=== PATIENT | female | born 1945 | race Two or more races ===

== ENCOUNTER 2017-03-05 03:25 | Emergency (ER) | payer OTHER, MEDICAID ==
[~2017-03-05] VITALS: Ht 165.1 cm; Wt 99.8 kg
[~2017-03-05 03:25] MED LIST: ASPI325T25; DOC100C PO; FLUO20CA19 PO; GABA300C PO; HUMULOG; LANTUS SUBCUT; LEV500T PO; LEVO25TA6 PO; METF100097 PO; METR500T PO; PANTOPRAZOLE 40MG TABLETS PO; SENN8.6T21 PO; SIMV-13 PO; VALS160T53
[2017-03-05] MEDS ORDERED: ASPirin 81 mg TAB PO ONE (04:30)
[2017-03-05] MEDS ORDERED: MORPHINE SULFATE 4 MG/ML SYRG IV ONE (04:30)
[2017-03-05] MEDS ORDERED: NITROGLYCERIN 0.2MG/HR TOPICAL PATCH TD ONE (04:30)
[2017-03-05] MEDS ORDERED: ONDANSETRON HCL 4 MG/2 ML VIAL IV ONE (04:30)
[2017-03-05 04:38] LABS: Basophils # (auto) 0.1 uL; Basophils % (auto) 0.6 % (0.0-2.0); CONDITION Y; Eosinophils # (auto) 0.4 uL; Eosinophils % (auto) 4.1 % (0.0-7.0); Hematocrit 35.1 % (36.0-46.0); Hemoglobin 11.7 g/dL (12.2-16.2); Lymphocytes # (auto) 2.3 uL; Lymphocytes % (auto) 24.1 % (10.0-50.0); Mean Corpuscular Hemoglobin 27.4 pg (28.0-32.0); Mean Corpuscular Hgb Conc. 33.4 g/dL (32.0-36.0); Mean Corpuscular Volume 82.1 fL (80.0-100.0); Mean Platelet Volume 9.6 fL (7.4-10.4); Monocytes # (auto) 0.8 uL; Monocytes % (auto) 8.4 % (0.0-12.0); Neutrophils # (auto) 6.1 uL; Neutrophils % (auto) 62.8 % (37.0-80.0); Platelet Count (auto) 338 10^3/uL (140-450); Red Cell Distribution Width 13.9 % (11.6-16.0); White Blood Cell 9.7 10^3/uL (4.4-10.8)
[2017-03-05 04:56] LABS: Albumin 3.6 g/dL (3.4-5.0); Anion Gap 8 (5-15); Aspartate Aminotransferase 18 U/L (15-37); BUN/Creatinine Ratio 16.4; Blood Urea Nitrogen 23 mg/dL (7-18); Calcium 8.6 mg/dL (8.5-10.1); Carbon Dioxide 25 mmol/L (21-32); Chloride 90 mmol/L (98-107); GFR African American 48 mL/min; GFR Non-African American 39 mL/min; Glucose 213 mg/dL (74-106); Potassium 5.3 mmol/L (3.5-5.1); Sodium 123 mmol/L (136-145)
[2017-03-05 05:04] LABS: INR 0.95 (0.9-1.15); Partial Thromboplastin Time 29.3 sec (22.64-33.71); Prothrombin Time 10.4 sec (9.37-12.3)
[2017-03-05 05:10] LABS: Alkaline Phosphatase 94 U/L (45-117); Bilirubin, Total 0.3 mg/dL (0.2-1.0); Total Protein 7.6 g/dL (6.4-8.2)
[2017-03-05 05:33] LABS: B-Type Natriuretic Peptide 906.76 pg/mL (0-100)
[2017-03-05 06:03] LABS: Temperature: 22.7 C (20.0-25.0)
[2017-03-05 06:54] LABS: Urine Bilirubin Negative (Negative); Urine Blood Negative /uL (Negative); Urine Color Yellow (Yellow); Urine Glucose Normal (Normal); Urine Ketone Negative (Negative); Urine Nitrite Negative (Negative); Urine RBC <1 /hpf (0 - 4); Urine Squamous Epithelial Cell FEW /hpf (<5); Urine Urobilinogen Normal (Negative); Urine pH 6.5 (5.0-8.0)
[2017-03-05] MEDS ORDERED: SODIUM CHLORIDE 0.9% 2,000 ML IV ONE (10:15)
[2017-03-05 12:50] VITALS: BP 173/70
== END 2017-03-05 13:56 | disposition home or self-care (01) ==
LOC: EDBD 03:25 → ER 03:28
DX: I20.9 Angina pectoris, unspecified (principal); I10 Essential (primary) hypertension; E11.9 Type 2 diabetes mellitus without complications; M19.90 Unspecified osteoarthritis, unspecified site; Z90.710 Acquired absence of both cervix and uterus; E78.5 Hyperlipidemia, unspecified; Z87.891 Personal history of nicotine dependence; Z79.4 Long term (current) use of insulin; Z79.82 Long term (current) use of aspirin; Z79.899 Other long term (current) drug therapy
CPT/HCPCS: 36415; 71010; 74176; 80053; 81001; 83735; 83880; 84443; 84484; 85025; 85610; 85730; 93005; 94761; 96361; 96374; 99285; J2405; J7030

== ENCOUNTER 2019-02-14 09:10 | Emergency (ER) | payer OTHER, MEDICAID ==
[~2019-02-14] VITALS: Ht 165.1 cm; Wt 90.7 kg
[2019-02-14 11:11] VITALS: BP 122/57
[2019-02-14] MEDS ORDERED: HYDROcodone-ACET 7.5/325MG TAB PO ONE (12:00)
== END 2019-02-14 12:16 | disposition home or self-care (01) ==
LOC: ER 09:17
DX: M50.122 Cervical disc disorder at C5-C6 level with radiculopathy (principal); E11.9 Type 2 diabetes mellitus without complications; E78.5 Hyperlipidemia, unspecified; I10 Essential (primary) hypertension; Z87.891 Personal history of nicotine dependence; Z90.710 Acquired absence of both cervix and uterus; Z86.39 Personal history of other endocrine, nutritional and metabolic disease
CPT/HCPCS: 72040

== ENCOUNTER 2019-02-19 09:41 | Emergency (ER) | payer OTHER, MEDICAID ==
[~2019-02-19] VITALS: Ht 165.1 cm; Wt 93.0 kg
[2019-02-19 10:10] VITALS: BP 168/73
== END 2019-02-19 10:39 | disposition home or self-care (01) ==
LOC: ER 09:41
DX: R21 Rash and other nonspecific skin eruption (principal); I10 Essential (primary) hypertension; E11.9 Type 2 diabetes mellitus without complications; E78.00 Pure hypercholesterolemia, unspecified; Z87.891 Personal history of nicotine dependence; Z90.49 Acquired absence of other specified parts of digestive tract; Z90.710 Acquired absence of both cervix and uterus; Z79.4 Long term (current) use of insulin; Z79.2 Long term (current) use of antibiotics; Z79.899 Other long term (current) drug therapy; Z79.82 Long term (current) use of aspirin
CPT/HCPCS: 82962

== ENCOUNTER 2020-05-06 17:15 | Emergency (ER) | payer OTHER, MEDICAID ==
[~2020-05-06] VITALS: Ht 162.6 cm; Wt 94.3 kg
[2020-05-06 19:32] LABS: Urine Bacteria FEW /hpf (None Seen); Urine Blood Negative /uL (Negative); Urine Specific Gravity 1.018 (1.001-1.035); Urine WBC 355 /hpf (0 - 5)
[2020-05-06 19:54] VITALS: BP 150/64
[2020-05-06] MEDS ORDERED: cefTRIAXone SOD 1,000 MG VL ONE (20:00)
[2020-05-06] MEDS ORDERED: cefTRIAXone W LIDOCAINE 1 GM IM IM ONE (20:00)
[2020-05-06] MEDS ORDERED: PHENAZOPYRIDINE HCL 100 MG TAB PO ONE ×2 (20:00→20:15)
== END 2020-05-06 20:17 | disposition home or self-care (01) ==
LOC: ER 17:15
DX: N39.0 Urinary tract infection, site not specified (principal); E11.9 Type 2 diabetes mellitus without complications; E78.5 Hyperlipidemia, unspecified; I10 Essential (primary) hypertension; Z90.49 Acquired absence of other specified parts of digestive tract; Z79.899 Other long term (current) drug therapy; Z79.82 Long term (current) use of aspirin
CPT/HCPCS: 81001; 87086; 96372; 99283; J0696; 87088; 87186

== ENCOUNTER 2020-05-07 08:33 | Emergency (ER) | payer OTHER, MEDICAID ==
[~2020-05-07] VITALS: Ht 165.1 cm; Wt 94.3 kg
[2020-05-07 09:14] LABS: Urine Bacteria FEW /hpf (None Seen); Urine Blood TRACE /uL (Negative); Urine Specific Gravity 1.013 (1.001-1.035); Urine WBC 328 /hpf (0 - 5); Urine WBC Clumps PRESENT /hpf (None Seen)
[2020-05-07 09:23] LABS: Basophils # (auto) 0.1 10 ^3/uL (0-0.2); Eosinophils # (auto) 0 10 ^3/uL (0-0.8); Eosinophils % (auto) 0.3 % (0.0-7.0); Neutrophils % (auto) 79.6 % (37.0-80.0)
[2020-05-07 09:25] LABS: Basophils % (auto) 0.6 % (0.0-2.0); Hematocrit 34.7 % (36.0-46.0); Hemoglobin 11.2 g/dL (12.2-16.2); Lymphocytes # (auto) 0.9 10 ^3/uL (0.4-5.4); Lymphocytes % (auto) 7.4 % (10.0-50.0); Mean Corpuscular Hemoglobin 27.2 pg (28.0-32.0); Mean Corpuscular Hgb Conc. 32.1 g/dL (32.0-36.0); Mean Corpuscular Volume 84.7 fL (80.0-100.0); Monocytes # (auto) 1.5 10 ^3/uL (0-1.3); Monocytes % (auto) 12.1 % (0.0-12.0); Neutrophils # (auto) 9.7 10 ^3/uL (1.6-8.6); Platelet Count (auto) 320 10^3/uL (140-450); White Blood Cell 12.2 10^3/uL (4.4-10.8)
[2020-05-07 09:38] LABS: Albumin 3.1 g/dL (3.4-5.0); Amylase 29 U/L (25-115); Anion Gap 8 (5-15); Blood Urea Nitrogen 17 mg/dL (7-18); Calcium 8.7 mg/dL (8.5-10.1); Carbon Dioxide 25 mmol/L (21-32); Chloride 94 mmol/L (98-107); Glucose 317 mg/dL (74-106); Lipase 119 U/L (73-393); Potassium 4.4 mmol/L (3.5-5.1); Sodium 127 mmol/L (136-145)
[2020-05-07 09:44] LABS: Alanine Aminotransferase 17 U/L (13-56); Alkaline Phosphatase 85 U/L (45-117); Aspartate Aminotransferase 14 U/L (15-37); BUN/Creatinine Ratio 13.1; Bilirubin, Total 0.4 mg/dL (0.2-1.0); GFR African American 51 mL/min; GFR Non-African American 42 mL/min; Total Protein 7.4 g/dL (6.4-8.2)
[2020-05-07] MEDS ORDERED: cefTRIAXone 1GM/50ML D5W 50 ML IV ONE (10:15)
[2020-05-07] MEDS ORDERED: SODIUM CHLORIDE 0.9% 1,000 ML IV ONE (11:00)
[2020-05-07] MEDS ORDERED: metroNIDAZOLE 500MG/100ML 100 ML IV ONE (11:30)
[2020-05-07 14:00] VITALS: BP 163/67
== END 2020-05-07 14:17 | disposition home or self-care (01) ==
LOC: ER 08:33 → EDBD 08:33 → ER 14:17
DX: N39.0 Urinary tract infection, site not specified (principal); E11.21 Type 2 diabetes mellitus with diabetic nephropathy; K52.89 Other specified noninfective gastroenteritis and colitis; E87.1 Hypo-osmolality and hyponatremia; E78.5 Hyperlipidemia, unspecified; E03.9 Hypothyroidism, unspecified; Z90.49 Acquired absence of other specified parts of digestive tract; Z87.891 Personal history of nicotine dependence; Z79.899 Other long term (current) drug therapy; Z79.82 Long term (current) use of aspirin; Z90.710 Acquired absence of both cervix and uterus
CPT/HCPCS: 36415; 80053; 81001; 82150; 82962; 83690; 84443; 84484; 85025; 87086; 87493; 93005; 96365; 96367; 99284; J0696; J3490; J7030

== ENCOUNTER 2021-07-03 17:11 | Emergency (ER) | payer OTHER, MEDICAID ==
[~2021-07-03] VITALS: Ht 165.1 cm; Wt 90.7 kg
[2021-07-03 17:24] VITALS: BP 101/54
== END 2021-07-03 17:40 | disposition home or self-care (01) ==
LOC: ER 17:11 → EDBD 17:11 → ER 17:40
DX: M25.562 Pain in left knee (principal); N39.0 Urinary tract infection, site not specified; I10 Essential (primary) hypertension; E11.9 Type 2 diabetes mellitus without complications; E78.5 Hyperlipidemia, unspecified; E03.9 Hypothyroidism, unspecified; Z90.49 Acquired absence of other specified parts of digestive tract; Z90.710 Acquired absence of both cervix and uterus; Z95.0 Presence of cardiac pacemaker; Z87.891 Personal history of nicotine dependence; Z79.82 Long term (current) use of aspirin; Z79.2 Long term (current) use of antibiotics; Z79.899 Other long term (current) drug therapy; W19.XXXA Unspecified fall, initial encounter; Y93.89 Activity, other specified; Y92.89 Other specified places as the place of occurrence of the external cause; Y99.8 Other external cause status

== ENCOUNTER 2023-02-06 13:34 | Inpatient (IN) | payer OTHER, MEDICAID ==
[~2023-02-06] VITALS: Ht 167.6 cm; Wt 100.8 kg
[~2023-02-06 13:34] MED LIST changes: -SIMV-13 PO; +SIMV40TA18 PO
[2023-02-06 14:18] LABS: Basophils # (auto) 0.1 10 ^3/uL (0-0.2); Basophils % (auto) 0.6 % (0.0-2.0); Eosinophils # (auto) 0.1 10 ^3/uL (0-0.8); Hemoglobin 11.9 g/dL (12.2-16.2); Lymphocytes # (auto) 0.8 10 ^3/uL (0.4-5.4); Mean Corpuscular Hemoglobin 25.8 pg (28.0-32.0); Monocytes # (auto) 1.6 10 ^3/uL (0-1.3)
[2023-02-06 14:20] LABS: Eosinophils % (auto) 0.8 % (0.0-7.0); Hematocrit 36.9 % (36.0-46.0); Lymphocytes % (auto) 7.6 % (10.0-50.0); Mean Corpuscular Hgb Conc. 32.2 g/dL (32.0-36.0); Mean Corpuscular Volume 80.1 fL (80.0-100.0); Monocytes % (auto) 14.3 % (0.0-12.0); Neutrophils # (auto) 8.4 10 ^3/uL (1.6-8.6); Neutrophils % (auto) 76.7 % (37.0-80.0); Nucleated Red Blood Cells % 0.1 %; Red Blood Cells 4.61 10^6/uL (4.0-5.20); Red Cell Distribution Width 14.3 % (11.8-14.3); White Blood Cell 10.9 10^3/uL (4.4-10.8)
[2023-02-06 14:40] LABS: Albumin 3.4 g/dL (3.4-5.0); Magnesium 1.7 mg/dL (1.6-2.6); Potassium 4.4 mmol/L (3.5-5.1)
[2023-02-06 14:43] LABS: BUN/Creatinine Ratio 14.9 (10.0-20.0); Bilirubin, Total 0.4 mg/dL (0.2-1.0); Total Protein 8.1 g/dL (6.4-8.2)
[2023-02-06] MEDS ORDERED: FUROSEMIDE 40 MG/4 ML VIAL IV ONE (16:30)
[2023-02-06 16:48] LABS: Urine Bacteria FEW /hpf (None Seen); Urine Blood Negative /uL (Negative); Urine WBC <1 /hpf (0 - 5)
[2023-02-06] MEDS ORDERED: ACETAMINOPHEN 325 MG TAB PO PRN (18:30)
[2023-02-06] MEDS ORDERED: MORPHINE SULFATE INJ 2 MG/ml SYRG IV PRN ×2 (18:30)
[2023-02-06] MEDS ORDERED: VALSARTAN 80 MG TAB PO ONE ×2 (18:30→19:00)
[2023-02-06] MEDS ORDERED: DEXTROSE (50%) 50ML SYRG IV PRN (18:30)
[2023-02-06] MEDS ORDERED: cefTRIAXone 1GM/50ML D5W 50 ML IV ONE (18:30)
[2023-02-06] MEDS ORDERED: NITROGLYCERIN 0.4 MG SL TAB SL PRN (18:30)
[2023-02-06 18:57] LABS: Cholesterol 154 mg/dL (< 200); Triglycerides 101 mg/dL (< 150)
[2023-02-06] MEDS: SODIUM CHLORIDE 0.9% 1,000 ML IV SCH (18:57)
[2023-02-06] MEDS: ENOXAPARIN SOD 40 MG/0.4 ML SYRINGE SC SCH (18:58)
[2023-02-06 19:00] LABS: HDL Cholesterol 46 mg/dL (40-59); LDL Cholesterol 101 mg/dL (< 100)
[2023-02-06] MEDS ORDERED: AZITHROMYCIN 500MG/ 250ML 250 ML IV ONE (19:00)
[2023-02-06] MEDS: hydrALAZINE HCL 20 MG/ML VL IV PRN (19:10)
[2023-02-06] MEDS: HCTZ 25 MG TAB PO SCH (20:07)
[2023-02-06] MEDS: METOPROLOL TARTRATE 25 MG TAB PO SCH (22:07)
[2023-02-06] MEDS: ATORVASTATIN 20 MG TAB PO SCH (22:07)
[2023-02-06] MEDS: DOCUSATE SOD 100 MG CAP PO SCH (22:07)
[2023-02-06] MEDS: GABAPENTIN 300 MG CAP PO SCH (22:07)
[2023-02-06] MEDS: ACCU-CHEK COMFORT CURVE STRIP VI SCH (22:14)
[2023-02-06] MEDS: InsuLIN REG 1unit/0.01ml Soln (100units/ml) SC SCH (22:18)
[2023-02-06] MEDS: INSULIN LANTUS (GLARGINE) 1 /0.01ml (100units/ml) SC SCH (22:19)
[2023-02-06] MEDS: HYDROcodone-ACET 5/325MG TAB PO PRN (23:55)
[2023-02-07 05:49] LABS: Basophils # (auto) 0.1 10 ^3/uL (0-0.2); Eosinophils # (auto) 0 10 ^3/uL (0-0.8); Hemoglobin 11.6 g/dL (12.2-16.2); Mean Corpuscular Volume 80.3 fL (80.0-100.0); Red Cell Distribution Width 14.3 % (11.8-14.3)
[2023-02-07 05:53] LABS: Basophils % (auto) 0.8 % (0.0-2.0); Eosinophils % (auto) 0.3 % (0.0-7.0); Hematocrit 35.5 % (36.0-46.0); Lymphocytes # (auto) 0.8 10 ^3/uL (0.4-5.4); Lymphocytes % (auto) 9.5 % (10.0-50.0); Mean Corpuscular Hemoglobin 26.4 pg (28.0-32.0); Mean Corpuscular Hgb Conc. 32.8 g/dL (32.0-36.0); Monocytes # (auto) 1.5 10 ^3/uL (0-1.3); Monocytes % (auto) 17.6 % (0.0-12.0); Neutrophils # (auto) 6.3 10 ^3/uL (1.6-8.6); Neutrophils % (auto) 71.8 % (37.0-80.0); Nucleated Red Blood Cells % 0.2 %; Red Blood Cells 4.42 10^6/uL (4.0-5.20); White Blood Cell 8.8 10^3/uL (4.4-10.8)
[2023-02-07 06:15] LABS: Potassium 3.6 mmol/L (3.5-5.1)
[2023-02-07] MEDS: GABAPENTIN 300 MG CAP PO SCH ×3 (06:20→21:51)
[2023-02-07 06:22] LABS: Albumin 3.3 g/dL (3.4-5.0); BUN/Creatinine Ratio 18.2 (10.0-20.0); Bilirubin, Total 0.3 mg/dL (0.2-1.0); Calcium 8.6 mg/dL (8.5-10.1); Total Protein 7.8 g/dL (6.4-8.2)
[2023-02-07] MEDS: LEVOTHYROXINE SODIUM 25 MCG TAB PO SCH (06:33)
[2023-02-07] MEDS: ACCU-CHEK COMFORT CURVE STRIP VI SCH ×4 (06:37→21:52)
[2023-02-07] MEDS: INSULIN LANTUS (GLARGINE) 1 /0.01ml (100units/ml) SC SCH ×2 (06:43→22:00)
[2023-02-07] MEDS: InsuLIN REG 1unit/0.01ml Soln (100units/ml) SC SCH ×4 (06:45→21:48)
[2023-02-07] MEDS: cefTRIAXone 1GM/50ML D5W 50 ML IV SCH (08:56)
[2023-02-07] MEDS ORDERED: ASPirin 81 mg TAB PO SCH (10:00)
[2023-02-07] MEDS: VALSARTAN 80 MG TAB PO SCH (10:51)
[2023-02-07] MEDS: DOCUSATE SOD 100 MG CAP PO SCH ×2 (10:52→21:51)
[2023-02-07] MEDS: METOPROLOL TARTRATE 25 MG TAB PO SCH ×2 (10:52→21:52)
[2023-02-07] MEDS: FLUoxetine HCL 20 MG CAP PO SCH (10:52)
[2023-02-07] MEDS: ENOXAPARIN SOD 40 MG/0.4 ML SYRINGE SC SCH (10:52)
[2023-02-07] MEDS: HCTZ 25 MG TAB PO SCH (10:52)
[2023-02-07] MEDS: AZITHROMYCIN 500MG/ 250ML 250 ML IV SCH (10:53)
[2023-02-07] MEDS: SODIUM CHLORIDE 0.9% 1,000 ML IV SCH (11:12)
[2023-02-07] MEDS: hydrALAZINE HCL 20 MG/ML VL IV PRN (12:11)
[2023-02-07] MEDS ORDERED: AZITHROMYCIN 500MG/ 250ML 250 ML IV SCH (13:30)
[2023-02-07] MEDS: HYDROcodone-ACET 5/325MG TAB PO PRN (14:19)
[2023-02-07 16:03] VITALS: BP 145/60
[2023-02-07] MEDS ORDERED: VALS160T53 PO (19:19)
[2023-02-07] MEDS ORDERED: APIX5TAB PO (19:19)
[2023-02-07] MEDS ORDERED: DOXY-346 PO (19:19)
[2023-02-07] MEDS: APIXABAN 5 MG TAB PO SCH (21:52)
[2023-02-07] MEDS: ATORVASTATIN 20 MG TAB PO SCH (21:52)
[2023-02-07 22:00] VITALS: BP 161/56
[2023-02-08 05:00] VITALS: BP 166/60
[2023-02-08] MEDS: hydrALAZINE HCL 20 MG/ML VL IV PRN (05:33)
[2023-02-08] MEDS: LEVOTHYROXINE SODIUM 25 MCG TAB PO SCH (06:01)
[2023-02-08] MEDS: GABAPENTIN 300 MG CAP PO SCH ×2 (06:01→14:00)
[2023-02-08] MEDS: InsuLIN REG 1unit/0.01ml Soln (100units/ml) SC SCH ×2 (06:05→12:51)
[2023-02-08] MEDS: ACCU-CHEK COMFORT CURVE STRIP VI SCH ×2 (06:07→12:48)
[2023-02-08] MEDS: INSULIN LANTUS (GLARGINE) 1 /0.01ml (100units/ml) SC SCH (06:07)
[2023-02-08 09:00] VITALS: BP 115/39
[2023-02-08] MEDS: cefTRIAXone 1GM/50ML D5W 50 ML IV SCH (09:24)
[2023-02-08] MEDS: AZITHROMYCIN 500MG/ 250ML 250 ML IV SCH (09:29)
[2023-02-08] MEDS: DOCUSATE SOD 100 MG CAP PO SCH (09:31)
[2023-02-08] MEDS: FLUoxetine HCL 20 MG CAP PO SCH (09:31)
[2023-02-08] MEDS: APIXABAN 5 MG TAB PO SCH (09:31)
[2023-02-08] MEDS: VALSARTAN 80 MG TAB PO SCH (09:32)
[2023-02-08] MEDS: HCTZ 25 MG TAB PO SCH (09:33)
[2023-02-08] MEDS: METOPROLOL TARTRATE 25 MG TAB PO SCH (09:33)
[2023-02-08] MEDS ORDERED: PANTOPRAZOLE 40 MG TAB PO SCH (10:00)
[2023-02-08 13:00] VITALS: BP 154/57
== END 2023-02-08 18:30 | disposition home health service (06) | DRG 189 ==
LOC: EDBD 13:34 → ER 13:34 → TELE 18:29 → TELE-WESTW 02-07 16:05
PROVIDERS: ADMIT Registered Nurse; ATTEND Internal Medicine
DX: J96.01 Acute respiratory failure with hypoxia (principal); I50.33 Acute on chronic diastolic (congestive) heart failure; J18.9 Pneumonia, unspecified organism; N17.9 Acute kidney failure, unspecified; I13.0 Hypertensive heart and chronic kidney disease with heart failure and stage 1 through stage 4 chronic kidney disease, or unspecified chronic kidney disease; F03.92 Unspecified dementia, unspecified severity, with psychotic disturbance; I82.401 Acute embolism and thrombosis of unspecified deep veins of right lower extremity; Z68.41 Body mass index [BMI] 40.0-44.9, adult; I16.1 Hypertensive emergency; K76.0 Fatty (change of) liver, not elsewhere classified; N18.32 Chronic kidney disease, stage 3b; E11.22 Type 2 diabetes mellitus with diabetic chronic kidney disease; I48.91 Unspecified atrial fibrillation; E78.5 Hyperlipidemia, unspecified; E03.9 Hypothyroidism, unspecified; E66.9 Obesity, unspecified; Z90.710 Acquired absence of both cervix and uterus; Z95.0 Presence of cardiac pacemaker; Z87.891 Personal history of nicotine dependence; Z86.73 Personal history of transient ischemic attack (TIA), and cerebral infarction without residual deficits
CPT/HCPCS: 36415; 36600; 70450; 71045; 74176; 78582; 80053; 80061; 80320; 81001; 82805; 82962; 83036; 83690; 83735; 84443; 85025; 85379; 87040; 93005; 93306; 93970; 96361; 96365; 96375; 99291; G0378; J0696; J1815

== ENCOUNTER 2023-02-10 13:45 | Inpatient (IN) | payer OTHER, MEDICAID ==
[~2023-02-10] VITALS: Ht 172.7 cm; Wt 95.7 kg
[~2023-02-10 13:45] MED LIST changes: +APIX5TAB PO; -ASPI325T25; +DOXY-346 PO; -LEV500T PO; -METR500T PO; -VALS160T53; +VALS160T53 PO
[2023-02-10] MEDS ORDERED: metroNIDAZOLE 500 MG TAB PO ONE (15:00)
[2023-02-10] MEDS ORDERED: SODIUM CHLORIDE 0.9% 1,000 ML IVB ONE (15:00)
[2023-02-10 15:28] LABS: Basophils # (auto) 0.1 10 ^3/uL (0-0.2); Basophils % (auto) 0.7 % (0.0-2.0); Eosinophils # (auto) 0.1 10 ^3/uL (0-0.8); Lymphocytes # (auto) 1.3 10 ^3/uL (0.4-5.4); Monocytes # (auto) 0.9 10 ^3/uL (0-1.3)
[2023-02-10 15:30] LABS: Eosinophils % (auto) 0.6 % (0.0-7.0); Hematocrit 36.8 % (36.0-46.0); Hemoglobin 11.9 g/dL (12.2-16.2); Lymphocytes % (auto) 14.7 % (10.0-50.0); Mean Corpuscular Hemoglobin 25.9 pg (28.0-32.0); Mean Corpuscular Hgb Conc. 32.3 g/dL (32.0-36.0); Mean Corpuscular Volume 80.1 fL (80.0-100.0); Monocytes % (auto) 10.5 % (0.0-12.0); Neutrophils # (auto) 6.3 10 ^3/uL (1.6-8.6); Neutrophils % (auto) 73.5 % (37.0-80.0); Nucleated Red Blood Cells % 0.1 %; Red Blood Cells 4.59 10^6/uL (4.0-5.20); Red Cell Distribution Width 14.2 % (11.8-14.3); White Blood Cell 8.6 10^3/uL (4.4-10.8)
[2023-02-10 15:45] LABS: INR 0.99 (0.9-1.15); Partial Thromboplastin Time 32.5 sec (24.6-33.4)
[2023-02-10] MEDS ORDERED: LORazepam 2MG/ML-1ML VIAL IM ONE (15:45)
[2023-02-10 15:47] LABS: Albumin 3.2 g/dL (3.4-5.0); Calcium 8.5 mg/dL (8.5-10.1); Magnesium 1.9 mg/dL (1.6-2.6); Potassium 3.4 mmol/L (3.5-5.1)
[2023-02-10 15:50] LABS: BUN/Creatinine Ratio 16.6 (10.0-20.0); Bilirubin, Total 0.3 mg/dL (0.2-1.0); Total Protein 7.1 g/dL (6.4-8.2)
[2023-02-10 15:51] LABS: Lactic Acid w/Reflex 2.2 mmol/L (0.4-2.0)
[2023-02-10 20:09] LABS: Urine Bacteria FEW /hpf (None Seen); Urine Blood Negative /uL (Negative); Urine Hyaline Cast FEW /lpf (0 - 2); Urine Mucus FEW (None Seen); Urine WBC 2 /hpf (0 - 5)
[2023-02-10] MEDS ORDERED: DEXTROSE (50%) 50ML SYRG IV PRN (21:45)
[2023-02-10] MEDS ORDERED: ONDANSETRON HCL 4 MG/2 ML VIAL IV PRN (21:45)
[2023-02-10] MEDS ORDERED: DOCUSATE SOD 100 MG CAP PO PRN (21:45)
[2023-02-10] MEDS ORDERED: cefTRIAXone 1GM/50ML D5W 50 ML IV ONE (21:45)
[2023-02-10] MEDS ORDERED: AZITHROMYCIN 500MG/ 250ML 250 ML IV ONE (21:45)
[2023-02-10] MEDS ORDERED: NITROGLYCERIN 0.4 MG SL TAB SL PRN (22:15)
[2023-02-10] MEDS ORDERED: MORPHINE SULFATE INJ 2 MG/ml SYRG IV PRN (22:15)
[2023-02-10] MEDS: SODIUM CHLORIDE 0.9% 1,000 ML IV SCH (23:21)
[2023-02-10] MEDS: FAMOTIDINE (10MG/ML) 2ML VL IV SCH (23:22)
[2023-02-11] MEDS ORDERED: InsuLIN REG 1unit/0.01ml Soln (100units/ml) SC SCH
[2023-02-11] MEDS ORDERED: ACCU-CHEK COMFORT CURVE STRIP VI SCH
[2023-02-11] MEDS: ACETAMINOPHEN 325 MG TAB PO PRN (00:15)
[2023-02-11] MEDS: hydrALAZINE HCL 20 MG/ML VL IV PRN (01:25)
[2023-02-11 06:16] LABS: Basophils # (auto) 0 10 ^3/uL (0-0.2); Hemoglobin 10.9 g/dL (12.2-16.2); Monocytes # (auto) 0.8 10 ^3/uL (0-1.3)
[2023-02-11 06:18] LABS: Basophils % (auto) 0.6 % (0.0-2.0); Eosinophils # (auto) 0.1 10 ^3/uL (0-0.8); Hematocrit 33.4 % (36.0-46.0); Lymphocytes # (auto) 1.5 10 ^3/uL (0.4-5.4); Lymphocytes % (auto) 20.8 % (10.0-50.0); Mean Corpuscular Hemoglobin 26.3 pg (28.0-32.0); Mean Corpuscular Hgb Conc. 32.5 g/dL (32.0-36.0); Neutrophils # (auto) 4.9 10 ^3/uL (1.6-8.6); Neutrophils % (auto) 65.6 % (37.0-80.0); Red Blood Cells 4.13 10^6/uL (4.0-5.20); Red Cell Distribution Width 14.4 % (11.8-14.3); White Blood Cell 7.4 10^3/uL (4.4-10.8)
[2023-02-11 06:27] LABS: Albumin 2.8 g/dL (3.4-5.0); Potassium 3.4 mmol/L (3.5-5.1)
[2023-02-11 06:32] LABS: BUN/Creatinine Ratio 20.8 (10.0-20.0); Bilirubin, Total 0.3 mg/dL (0.2-1.0); Total Protein 6.8 g/dL (6.4-8.2)
[2023-02-11] MEDS: ACCU-CHEK COMFORT CURVE STRIP VI SCH ×4 (07:38→23:29)
[2023-02-11] MEDS: InsuLIN REG 1unit/0.01ml Soln (100units/ml) SC SCH ×4 (07:39→23:36)
[2023-02-11] MEDS: LEVOTHYROXINE SODIUM 25 MCG TAB PO SCH (07:40)
[2023-02-11] MEDS: cefTRIAXone 1GM/50ML D5W 50 ML IV SCH (08:42)
[2023-02-11] MEDS: AZITHROMYCIN 500MG/ 250ML 250 ML IV SCH (10:00)
[2023-02-11] MEDS: SODIUM CHLORIDE 0.9% 1,000 ML IV SCH (14:58)
[2023-02-12] MEDS ORDERED: LORazepam 2MG/ML-1ML VIAL IM ONE (01:15)
[2023-02-12] MEDS: SODIUM CHLORIDE 0.9% 1,000 ML IV SCH ×2 (01:15→17:55)
[2023-02-12] MEDS ORDERED: LORazepam 2MG/ML-1ML VIAL IV PRN (01:15)
[2023-02-12 05:00] VITALS: BP 134/98
[2023-02-12] MEDS: InsuLIN REG 1unit/0.01ml Soln (100units/ml) SC SCH ×4 (06:48→22:00)
[2023-02-12] MEDS: LEVOTHYROXINE SODIUM 25 MCG TAB PO SCH (06:52)
[2023-02-12] MEDS: ACCU-CHEK COMFORT CURVE STRIP VI SCH ×4 (07:00→22:00)
[2023-02-12 07:28] LABS: Calcium 8.7 mg/dL (8.5-10.1); Potassium 3.6 mmol/L (3.5-5.1)
[2023-02-12 07:31] LABS: BUN/Creatinine Ratio 16.3 (10.0-20.0)
[2023-02-12 08:00] VITALS: BP 132/96
[2023-02-12] MEDS: cefTRIAXone 1GM/50ML D5W 50 ML IV SCH (09:00)
[2023-02-12] MEDS: AZITHROMYCIN 500MG/ 250ML 250 ML IV SCH (10:00)
[2023-02-12] MEDS: FAMOTIDINE (10MG/ML) 2ML VL IV SCH (10:00)
[2023-02-12] MEDS ORDERED: AZITHROMYCIN 250 MG TAB PO ONE (11:15)
[2023-02-12] MEDS ORDERED: FAMOTIDINE 20 MG TAB PO ONE (11:15)
[2023-02-12 12:00] VITALS: BP 137/89
[2023-02-12 16:00] VITALS: BP 135/63
[2023-02-12] MEDS: HYDROcodone-ACET 5/325MG TAB PO PRN (17:07)
[2023-02-12 22:00] VITALS: BP 137/52
[2023-02-13] MEDS: HYDROcodone-ACET 5/325MG TAB PO PRN ×3 (00:47→15:45)
[2023-02-13 05:00] VITALS: BP 155/68
[2023-02-13] MEDS: InsuLIN REG 1unit/0.01ml Soln (100units/ml) SC SCH ×4 (05:52→22:00)
[2023-02-13] MEDS: ACCU-CHEK COMFORT CURVE STRIP VI SCH ×4 (05:55→22:06)
[2023-02-13] MEDS: LEVOTHYROXINE SODIUM 25 MCG TAB PO SCH (06:09)
[2023-02-13 08:00] VITALS: BP 160/53
[2023-02-13] MEDS: ENSURE CLEAR Mixed Berry 8oz Carton PO SCH ×3 (08:00→17:57)
[2023-02-13] MEDS: AZITHROMYCIN 250 MG TAB PO SCH (08:38)
[2023-02-13] MEDS: hydrALAZINE HCL 20 MG/ML VL IV PRN (08:43)
[2023-02-13] MEDS: cefTRIAXone 1GM/50ML D5W 50 ML IV SCH (08:50)
[2023-02-13] MEDS: SODIUM CHLORIDE 0.9% 1,000 ML IV SCH (08:50)
[2023-02-13 09:00] VITALS: BP 160/53
[2023-02-13] MEDS: ACETAMINOPHEN 325 MG TAB PO PRN ×2 (11:15→19:04)
[2023-02-13 13:00] VITALS: BP 148/58
[2023-02-13 17:00] VITALS: BP 156/72
[2023-02-13 22:00] VITALS: BP_SYST 150; BP_SYST 156; BP_DIAS 51
[2023-02-14] MEDS: SODIUM CHLORIDE 0.9% 1,000 ML IV SCH (03:15)
[2023-02-14 05:00] VITALS: BP 148/56
[2023-02-14] MEDS: LEVOTHYROXINE SODIUM 25 MCG TAB PO SCH (06:34)
[2023-02-14] MEDS: ACCU-CHEK COMFORT CURVE STRIP VI SCH ×3 (06:34→17:01)
[2023-02-14] MEDS: InsuLIN REG 1unit/0.01ml Soln (100units/ml) SC SCH ×3 (06:34→17:05)
[2023-02-14] MEDS: ENSURE CLEAR Mixed Berry 8oz Carton PO SCH ×3 (08:00→17:37)
[2023-02-14] MEDS: cefTRIAXone 1GM/50ML D5W 50 ML IV SCH (09:18)
[2023-02-14] MEDS: AZITHROMYCIN 250 MG TAB PO SCH (09:19)
[2023-02-14] MEDS ORDERED: FAMOTIDINE 20 MG TAB PO SCH (10:00)
[2023-02-14] MEDS: HYDROcodone-ACET 5/325MG TAB PO PRN (11:29)
[2023-02-14] MEDS ORDERED: AZIT-81 PO (18:16)
== END 2023-02-14 19:05 | disposition home health service (06) | DRG 391 ==
LOC: ER 13:45 → EDBD 13:45 → TELE 22:12 → TELE-WESTW 02-11 22:14
PROVIDERS: ADMIT Nurse Practitioner Family; ATTEND Internal Medicine
DX: A08.4 Viral intestinal infection, unspecified (principal); J18.9 Pneumonia, unspecified organism; N17.0 Acute kidney failure with tubular necrosis; I95.89 Other hypotension; I12.9 Hypertensive chronic kidney disease with stage 1 through stage 4 chronic kidney disease, or unspecified chronic kidney disease; E11.649 Type 2 diabetes mellitus with hypoglycemia without coma; E11.22 Type 2 diabetes mellitus with diabetic chronic kidney disease; E78.5 Hyperlipidemia, unspecified; N18.2 Chronic kidney disease, stage 2 (mild); E03.9 Hypothyroidism, unspecified; Z82.49 Family history of ischemic heart disease and other diseases of the circulatory system; Z95.0 Presence of cardiac pacemaker; Z87.440 Personal history of urinary (tract) infections; E86.1 Hypovolemia
CPT/HCPCS: 36415; 71045; 74176; 80048; 80053; 81001; 82962; 83605; 83690; 83735; 84484; 85025; 85610; 85730; 87040; 87081; 87086; 87493; 93005; 96361; 96365; 97110; 97116; 97163; 97530; G0378; J0696; J1815; J3490